=== PATIENT | male | born 1955 | race Caucasian/White ===

== ENCOUNTER → 2017-03-01 | Day surgery (SDC) | payer OTHER ==
--- NOTE | 2017-03-01 15:53 | GOP ---
[f rep st] OPERATIVE REPORT DATE OF OPERATION: 03/01/2017 SURGEON: Jose De Jesus Gonzalez MD PREOPERATIVE DIAGNOSIS: Elevated prostate-specific antigen. POSTOPERATIVE DIAGNOSIS: Elevated prostate-specific antigen. PROCEDURE PERFORMED: Ultrasound-guided transrectal biopsies of the prostate. FINDINGS: INDICATIONS: The patient is a 61-year-old male with elevated PSA. After discussing options, he elec goran to undergo ultrasound-guided prostate biopsies. DESCRIPTION OF PROCEDURE: With the patient in the left lateral decubitus position, the transrectal u ltrasound probe was inserted. Images of the prostate were obtained. 1% lidocaine was used to anesth etize the periprosthetic tissue. A biopsy gun was used to obtain 12 cores of the prostate including the right and left base, mid and apical tissue. The patient tolerated the procedure well and was dis charged in stable condition. There were no intraoperative complications or blood loss. /[id number]/MODL
== END | disposition home or self-care (01) ==
LOC: BMCIMAGING 07:16
PROVIDERS: ATTEND Urology
PROC: BV49ZZZ Ultrasonography of Prostate and Seminal Vesicles (ICD-10-PCS; principal; 2017-03-01)
DX: R97.20 Elevated prostate specific antigen [PSA] (principal)